=== PATIENT | male | born 1970 | race Two or more races ===

== ENCOUNTER 2025-03-30 11:04 | Emergency (ER) | payer OTHER ==
[~2025-03-30] VITALS: Ht 172.7 cm; Wt 87.5 kg
[2025-03-30 12:18] VITALS: BP 152/78; O2SAT 98
[2025-03-30] MEDS ORDERED: ORPHENADRINE CITRATE 30 MG/ML AMPUL IM ONE (12:30)
[2025-03-30] MEDS ORDERED: ACETAMINOPHEN 500 MG GEL..CAP PO ONE ×2 (12:30→13:21)
[2025-03-30] MEDS ORDERED: ENALAPRILAT DIHYDRATE 1.25 MG/ML VIAL IV ONE ×2 (12:30→13:21)
[2025-03-30] MEDS ORDERED: NORVASC5 MG (12:31)
[2025-03-30] MEDS ORDERED: LOSARTAN-HCTZ1 EAC2 (12:31)
[2025-03-30] MEDS ORDERED: TOPROL XL50 M1 (12:32)
[2025-03-30] MEDS ORDERED: ORPHENADRINE CITRATE 30 MG/ML AMPUL ONE (13:20)
[2025-03-30 13:28] LABS: BASO % 1.0 % (0.1-1.2); EOS # 0.04 (0.04-0.54); EOS % 1.0 % (0.7-7.0); LYMPH # 1.48 (1.18-3.74); LYMPH % 37.6 % (19.3-53.1); MEAN PLATELET VOLUME 9.30 fl (9.4-12.4); MONO # 0.26 (0.24-0.82); MONO % 6.6 % (4.7-12.5); NEUT # 2.11 (1.56-6.13); NEUT % 53.5 % (34.0-71.1); RED CELL DISTRIBUTION WIDTH 12.8 % (11.6-14.4)
[2025-03-30 13:58] LABS: ALT/SGPT 13.0 U/L (12-78); AST/SGOT 14.0 U/L (15-37); BILIRUBIN TOTAL 1.32 mg/dL (0.3-1.2); BUN CREA RATIO 11.0 (7.0-25.0); CREATININE SERUM 1.14 mg/dL (0.70-1.30); GFR 67.45; GLOBULINA 3.3 G/DL (2.4-3.5); GLUCOSE FASTING 112.0 mg/dL (65-100); OSMOLALITY SERUM 280.0 MOSM/KG (275-295)
== END 2025-03-30 15:44 ==
LOC: ER 11:04
PROVIDERS: General Practice
DX: R51.9 Headache, unspecified (principal); I10 Essential (primary) hypertension